=== PATIENT | female | born 1940 | race Caucasian/White ===

== ENCOUNTER 2018-03-08 12:57 | Outpatient (CLI) | payer MEDICARE, OTHER ==
--- NOTE | 2018-03-08 14:46 | Ultrasound Report ---
EXAM: RIGHT LOWER EXTREMITY VENOUS ULTRASOUND EXAM DATE: 03/08/2018 01:54 PM. CLINICAL HISTORY: Right lower extremity swelling. COMPARISON: None. TECHNIQUE: Real-time sonographic vascular imaging was performed by the fuel storage technician through the lower extremity utilizing both color-flow and Doppler spectral analysis. Multiple associate financial representative static noemy ges were saved for review. FINDINGS: Common Femoral Vein (CFV): Normal. CFV-GSV Junction: Normal. Profunda Femoral Vein (PFV): Normal. Femoral Vein (FV) Prox: Normal. Femoral Vein (FV) Mid: Normal. Femoral Vein (FV) Dist: Normal. Popliteal Vein: Normal. Posterior Tibial Veins: Normal. Peroneal Veins: Normal. Other: None. IMPRESSION: 1. No evidence of right lower extremity deep venous thrombosis. [facility] Referring Provider Line: [phone] SITE ID: [id number]
== END 2018-03-08 12:58 | disposition home or self-care (01) ==
LOC: DI 12:57
PROVIDERS: ATTEND Physician Assistant
DX: R60.0 Localized edema (principal)

== ENCOUNTER 2018-03-26 14:12 | Outpatient (CLI) | payer MEDICARE, OTHER ==
--- NOTE | 2018-03-26 15:16 | XRAY Report ---
Procedure Date: 03/26/2018 Accession Number: [id number] / [id number] Procedure: XRS - Ankle 3 View RT CPT Code: FULL RESULT: EXAM: Ankle 3 View RT DATE: 03/26/2018 2:23 PM CLINICAL HISTORY: RIGHT ANKLE SWELLING and pain COMPARISON: None. TECHNIQUE: 3 views. FINDINGS: Bones: No fractures or bone lesions. Joints: Mild degenerative narrowing No tibiotalar joint effusion. No subluxations. Soft Tissues: No soft tissue swelling. IMPRESSION: Mild degenerative change right ankle without superimposed acute findings. [facility]
== END 2018-03-26 14:13 | disposition home or self-care (01) ==
LOC: DI.S 14:12
PROVIDERS: ATTEND Nurse Practitioner Family
DX: M19.071 Primary osteoarthritis, right ankle and foot (principal)

== ENCOUNTER 2018-05-20 14:30 | Outpatient (CLI) | payer MEDICARE, OTHER ==
--- NOTE | 2018-05-23 08:11 | MRI Report ---
Procedure Date: 05/20/2018 Accession Number: [id number] / [id number] Procedure: MRI - Ankle RT W/O CPT Code: FULL RESULT: EXAM: RIGHT ANKLE/HINDFOOT MRI WITHOUT CONTRAST EXAM DATE: 05/20/2018 04:26 PM. CLINICAL HISTORY: Trauma, pain, swelling. COMPARISON: ANKLE 3 VIEW RT 03/26/2018. TECHNIQUE: Multiplanar, multisequence T1-weighted and fluid-sensitive sequences of the ankle/hindfoot without contrast. Other: None. FINDINGS: Bones and articular surfaces: No significant ankle joint effusion. No talar dome osteochondral lesions. Small osteophytes at the dorsal margin of the talonavicular joint. Focal cartilage thinning with subchondral edema and tiny subchondral cyst formation at the proximal lateral aspect of the medial cuneiform adjacent to the articulation with the navicular and the middle cuneiform. Mild cartilage thinning at the calcaneocuboid articulation. No evidence of acute fracture or stress reaction. Musculotendinous structures: The Achilles tendon and plantar fascia appear intact. Visualized anterior, posterior and posterolateral ankle tendons appear intact without evidence of significant tendinosis or tenosynovitis. No significant muscle atrophy or fatty replacement within the field of view. Ligaments: There is an abnormal ossification at the talar attachment of the anterior talofibular ligament consistent with an old avulsion injury. The ligament otherwise appears intact and there is no associated edema. The posterior talofibular and calcaneofibular ligaments appear intact. Deep and superficial fibers of the deltoid ligament appear intact. There is some edema and some decreased T1 signal at the tarsal sinus. Miscellaneous: Nonspecific diffuse subcutaneous soft tissue edema and edema extending into the pre-Achilles Kager's fat pad. IMPRESSION: 1. Nonspecific subcutaneous soft tissue edema. 2. Degenerative joint disease with subchondral bone changes in the medial cuneiform at the junction of the navicular, medial and middle cuneiform. 3. Old avulsion injury at the talar attachment of the anterior talofibular ligament with no associated marrow or soft tissue edema. [facility] MUSCULOSKELETAL RADIOLOGY SECTION
== END 2018-05-20 14:31 | disposition home or self-care (01) ==
LOC: DI 14:30
PROVIDERS: ATTEND Physician Assistant
DX: M19.071 Primary osteoarthritis, right ankle and foot (principal); R60.0 Localized edema

== ENCOUNTER 2018-06-05 14:15 | Outpatient (CLI) | payer MEDICARE, OTHER ==
--- NOTE | 2018-06-06 11:10 | Ultrasound Report ---
Reason: HYPERLIPIDEMIA, UNSPECIFIED,EDEMA, UNSPECIFIED,LOW Procedure Date: 06/05/2018 Accession Number: [id number] / [id number] Procedure: US - Duplex Lwr Ext Arterial Bilat CPT Code: FULL RESULT: EXAM: Bilateral Lower Extremity Arterial Doppler Ultrasound EXAM DATE: 06/05/2018 04:54 PM. CLINICAL HISTORY: Hyperlipidemia, unspecified,edema, unspecified, low. COMPARISON: None. TECHNIQUE: Real-time sonographic vascular imaging was performed by the store mgr, utilizing color-flow, Doppler flow, and spectral analysis. Multiple data entry representative static images were saved for review. FINDINGS: The bilateral lower extremity arterial systems were sampled with medeiros scale and spectral Doppler. Expected arterial waveforms with brisk upstrokes are noted throughout both systems with three-vessel patencies to the ankle and Dopplerable arterial pulses in both dorsalis pedis arteries. Right Lower Extremity: LABORER CEMENT GUN PLACING: PSV 122 cm/sec. PSFA: PSV 100 cm/sec. MSFA: PSV 100 cm/sec. DSFA: PSV 91 cm/sec. PFA: PSV 87 cm/sec. POP: PSV 61 cm/sec. SYLVIA: PSV 51 cm/sec. PAINTER SPRING: PSV 51 cm/sec. BRYON: PSV 44 cm/sec. DPA: PSV 49 cm/sec. Left Lower Extremity: LABORER CEMENT GUN PLACING: PSV 120 cm/sec. PSFA: PSV 115 cm/sec. MSFA: PSV 99 cm/sec. DSFA: PSV 99 cm/sec. PFA: PSV 74 cm/sec. POP: PSV 70 cm/sec. SYLVIA: PSV 42 cm/sec. PAINTER SPRING: PSV 31 cm/sec. BRYON: PSV 23 cm/sec. DPA: PSV 50 cm/sec. IMPRESSION: Normal arterial supply to both lower extremities. [facility]
--- NOTE | 2018-06-06 11:10 | Ultrasound Report ---
Reason: LOWER EXTREMITY EDEMA PAIN Procedure Date: 06/05/2018 Accession Number: [id number] / [id number] Procedure: US - Duplex Ext Veins Bilateral CPT Code: FULL RESULT: EXAM: BILATERAL LOWER EXTREMITY VENOUS ULTRASOUND EXAM DATE: 06/05/2018 04:12 PM. CLINICAL HISTORY: Lower extremity edema, pain. COMPARISON: None. TECHNIQUE: Real-time sonographic vascular imaging was performed by the rides attendant through the lower extremities utilizing both color-flow and Doppler spectral analysis. Multiple employee relations representative static images were saved for review. FINDINGS: Right: Common Femoral Vein (CFV): Normal. CFV-GSV Junction: Normal. Profunda Femoral Vein (PFV): Normal. Femoral Vein (FV) Prox: Normal. Femoral Vein (FV) Mid: Normal. Femoral Vein (FV) Dist: Normal. Popliteal Vein: Normal. Posterior Tibial Veins: Normal. Peroneal Veins: Normal. Left: Common Femoral Vein (CFV): Normal. CFV-GSV Junction: Normal. Profunda Femoral Vein (PFV): Normal. Femoral Vein (FV) Prox: Normal. Femoral Vein (FV) Mid: Normal. Femoral Vein (FV) Dist: Normal. Popliteal Vein: Normal. Posterior Tibial Veins: Normal. Peroneal Veins: Normal. Other: None. IMPRESSION: No evidence for deep venous thrombosis bilaterally. [facility]
== END 2018-06-05 14:16 | disposition home or self-care (01) ==
LOC: DI 14:15
PROVIDERS: ATTEND Physician Assistant
DX: R60.0 Localized edema (principal); M79.662 Pain in left lower leg; M79.661 Pain in right lower leg; E78.5 Hyperlipidemia, unspecified; Z80.9 Family history of malignant neoplasm, unspecified; Z82.49 Family history of ischemic heart disease and other diseases of the circulatory system
CPT/HCPCS: 93925; 93970

== ENCOUNTER 2018-06-11 12:59 | Outpatient (CLI) | payer MEDICARE, OTHER | END 2018-06-11 13:00 | disposition home or self-care (01) | LOC: DI 12:59 | PROVIDERS: ATTEND Physician Assistant | DX: E78.5 Hyperlipidemia, unspecified (principal); R60.0 Localized edema; Z82.49 Family history of ischemic heart disease and other diseases of the circulatory system | CPT/HCPCS: 93306 ==

== ENCOUNTER 2018-08-01 11:04 | Outpatient (CLI) | payer MEDICARE, OTHER ==
[2018-08-01] MEDS ORDERED: IOPAMIDOL-300 50 ML VIAL ONE (11:22)
[2018-08-01] MEDS ORDERED: IOPAMIDOL-300 100 ML VIAL ONE (11:23)
[2018-08-01] MEDS ORDERED: IOPAMIDOL-300 50 ML VIAL PO ONE (12:55)
[2018-08-01] MEDS ORDERED: IOPAMIDOL-300 100 ML VIAL IVP ONE ×2 (12:55)
--- NOTE | 2018-08-01 15:54 | CT Report ---
Reason: LYMPHADEMA Procedure Date: 08/01/2018 Accession Number: [id number] / [id number] Procedure: CT - Abdomen/Pelvis W/ CPT Code: FULL RESULT: EXAM: CT ABDOMEN AND PELVIS EXAM DATE: 08/01/2018 01:08 PM. CLINICAL HISTORY: LYMPHADEMA. COMPARISONS: 07/19/2005. TECHNIQUE: Routine helical CT imaging was performed through the abdomen and pelvis. IV contrast: ISOVUE 300 80mL. Enteric contrast: No. Reconstructions: Coronal and sagittal. In accordance with CT protocol optimization, one or more of the following dose reduction techniques were utilized for this exam: automated exposure control, adjustment of mA and/or KV based on patient size, or use of iterative reconstructive technique. FINDINGS: Lung Bases: Left Bochdalek hernia Liver: Unremarkable. No masses. Gallbladder/Bile Ducts: Unremarkable by CT technique. Spleen: Normal. Pancreas: Normal. Adrenal Glands: Normal. Kidneys: 1 cm right upper pole simple cyst. No masses or hydronephrosis. Peritoneal Cavity/Bowel: No free fluid, free air or adenopathy. No masses or acute inflammatory process. Colonic diverticulosis particularly in the sigmoid region without diverticulitis. The appendix is well seen and normal. Pelvic Organs: The bladder is within normal limits. The uterus is not present. Vasculature: No aneurysms or other significant abnormality. Bones: Multilevel degenerative change lumbar spine with lumbar dextroscoliosis Other: An explanation for her lymphedema is not identified. IMPRESSION: 1. Degenerative change in the spine with dextroscoliosis. 2. Simple right renal cyst. 3. Colonic diverticulosis without diverticulitis. 4. No explanation for lymphedema identified. 5. Otherwise negative. [facility]
== END 2018-08-01 11:05 | disposition home or self-care (01) ==
LOC: LAB 11:04 → DI 11:05
PROVIDERS: ATTEND Physician Assistant
DX: I89.0 Lymphedema, not elsewhere classified (principal); M47.9 Spondylosis, unspecified; M41.86 Other forms of scoliosis, lumbar region; N28.1 Cyst of kidney, acquired; K57.30 Diverticulosis of large intestine without perforation or abscess without bleeding
CPT/HCPCS: 36415; 74177; 82565; Q9967

== ENCOUNTER 2021-06-09 13:40 | Outpatient (CLI) | payer MEDICARE, OTHER ==
--- NOTE | 2021-06-09 15:17 | XRAY Report ---
PROCEDURE: Knee 3 View RT INDICATIONS: RIGHT KNEE PAIN TECHNIQUE: 3 views of the right knee(s) were acquired. COMPARISON: None. FINDINGS: No acute fracture. Small joint effusion. Scattered subchondral sclerosis and spurring. Chondrocalcin osis projecting the medial compartment. Severe narrowing of the lateral joint space. IMPRESSION: Severe right knee joint degeneration most notably involving the lateral compartment. Small joint effusion. Chondrocalcinosis Reviewed by: Aquiles Morataya MD on 06/09/2021 3:16 PM PDT Approved by: Aquiles Morataya MD on 06/09/2021 3:16 PM PDT Station ID: [id number]
== END 2021-06-09 13:41 | disposition home or self-care (01) ==
LOC: DI.S 13:40
PROVIDERS: ATTEND Registered Nurse
DX: M17.11 Unilateral primary osteoarthritis, right knee (principal); M25.461 Effusion, right knee; M11.261 Other chondrocalcinosis, right knee

== ENCOUNTER 2022-07-26 12:59 | Outpatient (CLI) | payer MEDICARE, OTHER ==
--- NOTE | 2022-07-26 14:19 | XRAY Report ---
PROCEDURE: Chest 2 View X-Ray INDICATIONS: COUGH TECHNIQUE: 2 view(s) of the chest. COMPARISON: CT abdomen pelvis 08/01/2018. FINDINGS: Surgical changes and devices: Bilateral breast implants. Lungs and pleura: No pleural effusions or pneumothorax. Minimal linear opacities right mid lung, pro bable scarring and/or atelectasis. No lobar consolidation visualized. Left hemidiaphragm eventration as before. Mediastinum: Mediastinal contours are unremarkable. Heart size is normal. Bones and chest wall: No suspicious bony abnormalities. Soft tissues appear unremarkable. IMPRESSION: Minimal linear opacities are present at the right mid lung, probable scarring and/or ate lectasis but acute airspace disease is difficult to fully exclude. No lobar consolidation visualized. Reviewed by: Maykel Evans MD on 07/26/2022 2:17 PM PDT Approved by: Maykel Evans MD on 07/26/2022 2:17 PM PDT Station ID: [id number]
== END 2022-07-26 13:00 | disposition home or self-care (01) ==
LOC: DI.S 12:59
PROVIDERS: ATTEND Registered Nurse
DX: R05.9 Cough, unspecified (principal)

== ENCOUNTER 2023-02-28 13:51 | Outpatient (CLI) | payer MEDICARE, OTHER ==
--- NOTE | 2023-02-28 15:51 | DEXA Report ---
PROCEDURE: Dexa Spine and/or Hip INDICATIONS: POSTMENOPAUSAL TECHNIQUE: Dual energy x-ray absorptiometry (DXA) was performed on a [employer] System. Regions measur ed are the AP Spine, femoral neck, and if needed forearm. COMPARISON: None FINDINGS: Lumbar Spine: Bone Mineral Density 1.216 g/cm/cm,T score 0.3. Left Femoral Neck: Bone Mineral Density 0.74 g/cm/cm, T score -1.8. Left Hip: Bone Mineral Density 0.739 g/cm/cm,T score -2.1. (T score greater or equal to -1.0: NORMAL) (T score from -1.1 to -2.4: OSTEOPENIA) (T score less than or equal to -2.5 to: OSTEOPOROSIS) Impression: By WHO criteria, this patient has low bone density (osteopenia) of the hip. Patients with diagnosis of osteoporosis or osteopenia should have regular bone mineral density assess ment. For those eligible for Medicare, routine testing is allowed once every 2 years. Testing frequ ency can be increased for patients who have rapidly progressing disease or for those who are receivin g medical therapy to restore bone mass. Reviewed by: Ashley Claire MD on 02/28/2023 3:50 PM PDT Approved by: Ashley Claire MD on 02/28/2023 3:50 PM PDT Station ID: [id number]
== END 2023-02-28 13:52 | disposition home or self-care (01) ==
LOC: DI 13:51
PROVIDERS: ATTEND Registered Nurse
DX: M85.89 Other specified disorders of bone density and structure, multiple sites (principal); Z78.0 Asymptomatic menopausal state

== ENCOUNTER 2023-10-10 11:45 | Outpatient (CLI) | payer MEDICARE, OTHER ==
--- NOTE | 2023-10-10 13:14 | XRAY Report ---
PROCEDURE: Knee 3V RT INDICATIONS: RIGHT KNEE CONTUSION TECHNIQUE: 3 views of the knee(s) were acquired. COMPARISON: 06/09/2021 FINDINGS: Bones: No fractures or dislocations. No suspicious bony lesions. Slight interval progression of deg enerative arthritis. Chondrocalcinosis. Increased osteophytes. Severe medial compartment joint space loss, as before. Soft tissues: No knee joint effusion. No suspicious soft tissue calcifications or masses. 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 Severe medial compartment joint space loss. Reviewed by: Nathaniel Layton MD on 10/10/2023 1:13 PM PST Approved by: Nathaniel Layton MD on 10/10/2023 1:13 PM PST Station ID: [id number]
== END 2023-10-10 11:46 | disposition home or self-care (01) ==
LOC: DI.S 11:45
PROVIDERS: ATTEND Registered Nurse
DX: M17.11 Unilateral primary osteoarthritis, right knee (principal)

== ENCOUNTER 2024-06-22 12:34 | Outpatient (CLI) | payer MEDICARE, OTHER ==
--- NOTE | 2024-06-22 16:31 | XRAY Report ---
PROCEDURE: Lumbar Spine 2-3V INDICATIONS: LOW BACK APIN TECHNIQUE: 3 views of the lumbar spine were acquired. COMPARISON: None. FINDINGS: Surgical change: None. Bones: 5 [id number] vertebrae are present. There is moderate dextroscoliosis of lumbar spine wi th apex at L3 level. Chronic appearing anterior wedge compression deformity at L1 level is seen with up to 50% loss of L1 vertebral body height anteriorly. No acute vertebral body compression fractures. No suspicious bony lesions. Degenerative endplate changes and loss of disc height with bilateral fa cet arthrosis throughout lumbar spine is seen. Soft tissues: Overlying bowel gas pattern is normal. No suspicious soft tissue calcifications. IMPRESSION: 1. Chronic appearing anterior wedge compression deformity at L1 level with up to 50% loss of L1 verte bral body height. No acute compression fracture. Moderate dextroscoliosis of lumbar spine with apex a t L3 level. Moderate degenerative disc disease throughout lumbar spine. Reviewed by: Walter Alex MD on 06/22/2024 4:30 PM PDT Approved by: Walter Alex MD on 06/22/2024 4:30 PM PDT Station ID: [id number]
== END 2024-06-22 12:35 | disposition home or self-care (01) ==
LOC: DI.S 12:34
PROVIDERS: ATTEND Registered Nurse
DX: M48.56XA Collapsed vertebra, not elsewhere classified, lumbar region, initial encounter for fracture (principal); M41.9 Scoliosis, unspecified; M51.36 Other intervertebral disc degeneration, lumbar region; M47.816 Spondylosis without myelopathy or radiculopathy, lumbar region